=== PATIENT | female | born 1945 | race Caucasian/White ===

== ENCOUNTER 2022-09-15 13:06 | Outpatient (CLI) | payer MEDICARE | END 2022-09-15 13:07 | disposition home or self-care (01) | LOC: CSHMAMMO 13:06 | PROVIDERS: ATTEND Internal Medicine | DX: Z12.31 Encounter for screening mammogram for malignant neoplasm of breast (principal); Z13.820 Encounter for screening for osteoporosis; M85.89 Other specified disorders of bone density and structure, multiple sites; Z78.0 Asymptomatic menopausal state | CPT/HCPCS: 77063; 77067; 77080 ==

== ENCOUNTER 2023-05-25 14:21 | Outpatient (CLI) | payer MEDICARE | END 2023-05-25 14:22 | disposition home or self-care (01) | LOC: CSHRAD 14:21 | PROVIDERS: ATTEND Psychiatry & Neurology Neurology | DX: S49.92XA Unspecified injury of left shoulder and upper arm, initial encounter (principal) ==